=== PATIENT | male | born 1975 | race Caucasian/White ===

== ENCOUNTER 2017-07-05 19:58 | Emergency (ER) | payer BC ==
[2017-07-05 20:02] VITALS: BP 117/64; PULSE 83; TEMP 98.3; BMI 32.5
--- NOTE | 2017-07-05 20:04 | PDOC ---
History of Present Illness - General History Source: Patient Exam Limitations: No Limitations - History of Present Illness Initial Comments: 07/05/17 20:20 The patient is a 42 year old male with past medical history of depression, lap band surgery, and left TKR who presents to the ED with complaints of chest pain that began today. The patient describes his pain as a chest tightness that radiates toward his back. It is not associated with any shortness of breath, palpitations, or lightheadedness. He states that he did not eat anything all day until he went out to dinner and ate pasta with beans. The patient states his concern for his symptoms is due to his father having a heart attack at age 46. The patient denies any fevers, chills, nausea, vomiting, diarrhea, cough, or urinary symptoms. <Terra Lynch - Last Filed: 07/05/17 20:20> <Roz Olguin - Last Filed: 07/06/17 02:43> - General Chief Complaint: Chest Pain Stated Complaint: CHEST PAIN Time Seen by Provider: 07/05/17 20:03 Past History <Terra Lynch - Last Filed: 07/05/17 20:20> - Past Medical History Anemia: No Asthma: No Cancer: No Cardiac Disorders: No CVA: No COPD: No CHF: No Dementia: No Diabetes: No GI Disorders: Yes (GERD, Hiatal Hernia) Disorders: No HTN: Yes (no meds) Hypercholesterolemia: No Liver Disease: No Psychiatric Problems: Yes (DEPRESSION) Suicide Attempt (Hx): No Seizures: No Thyroid Disease: No - Surgical History Abdominal Surgery: Yes (lap band 2013) Appendectomy: No Cardiac Surgery: No Cholecystectomy: Yes Lung Surgery: No Neurologic Surgery: No Orthopedic Surgery: Yes (Left Knee Arthroscopy x6) - Immunization History Td Vaccination: Yes Immunization Up to Date: Yes - Psycho/Social/Smoking Cessation Hx Anxiety: No Suicidal Ideation: No Smoking Status: Yes Smoking History: Former smoker Years of Tobacco Use: 20 Have you smoked in the past 12 months: No Number of Cigarettes Smoked Daily: 0 If you are a former smoker, when did you quit?: FEBRUARY 2014 Information on smoking cessation initiated: No 'Breaking Loose' booklet given: 03/13/14 Hx Alcohol Use: No Drug/Substance Use Hx: No Substance Use Type: None Hx Substance Use Treatment: No <Roz Olguin - Last Filed: 07/06/17 02:43> - Past Medical History Allergies/Adverse Reactions: Allergies Allergy/AdvReac Type Severity Reaction Status Date / Time bupropion HCl Allergy Verified 09/03/15 15:33 [From Wellbutrin] Cat/Feline Product Allergy Verified 09/03/15 15:33 Derivatives seasonal Allergy Uncoded 09/03/15 15:33 Home Medications: Ambulatory Orders Lamotrigine [Lamictal] 200 mg PO DAILY 09/03/15 Escitalopram Oxalate [Lexapro -] 20 mg PO DAILY 07/05/17 Trazodone HCl [Desyrel -] 50 mg PO HS 07/05/17 Review of Systems - Review of Systems Able to Perform ROS?: Yes Comments:: 07/05/17 20:20 CONSTITUTIONAL: Absent: fever, chills, diaphoresis, generalized weakness, malaise, loss of appetite HEENT: Absent: rhinorrhea, nasal congestion, throat pain, throat swelling, difficulty swallowing, mouth swelling, ear pain, eye pain, visual Changes CARDIOVASCULAR: Present: chest pain Absent: syncope, palpitations, irregular heart rate, lightheadedness, peripheral edema RESPIRATORY: Absent: cough, shortness of breath, dyspnea with exertion, orthopnea, wheezing, stridor, hemoptysis GASTROINTESTINAL: Absent: abdominal pain, abdominal distension, nausea, vomiting, diarrhea, constipation, melena, hematochezia GENITOURINARY: Absent: dysuria, frequency, urgency, hesitancy, hematuria, flank pain, genital pain MUSCULOSKELETAL: Present: back pain Absent: joint swelling SKIN: Absent: rash, itching, pallor HEMATOLOGIC/IMMUNOLOGIC: Absent: easy bleeding, easy bruising, lymphadenopathy, frequent infections ENDOCRINE: Absent: unexplained weight gain, unexplained weight loss, heat intolerance, cold intolerance NEUROLOGIC: Absent: headache, focal weakness or paresthesias, dizziness, unsteady gait, seizure, mental status changes, bladder or bowel incontinence PSYCHIATRIC: Absent: anxiety, depression, suicidal or homicidal ideation, hallucinations. All Other Systems: Reviewed and Negative <Terra Lynch - Last Filed: 07/05/17 20:20> *Physical Exam - Vital Signs Last Vital Signs Temp Pulse Resp BP Pulse Ox 98.3 F 83 16 117/64 98 07/05/17 20:00 07/05/17 20:00 07/05/17 20:00 07/05/17 20:00 07/05/17 20:00 - Physical Exam Comments: 07/05/17 20:21 GENERAL: Well developed, well nourished. Awake and alert. No acute distress. HEENT: Normocephalic, atraumatic. PERRLA, EOMI. No conjunctival pallor. Sclera are non- icteric. Moist mucous membranes. Oropharynx is clear. NECK: Supple. Full ROM. No JVD. Carotid pulses 2+ and symmetric, without bruits. No thyromegaly. No lymphadenopathy. CARDIOVASCULAR: Regular rate and rhythm. No murmurs, rubs, or gallops. Distal pulses are 2+ and symmetric. PULMONARY: No evidence of respiratory distress. Lungs clear to auscultation bilaterally. No wheezing, rales or rhonchi. ABDOMINAL: Soft. Non-tender. Non-distended. No rebound or guarding. No organomegaly. Normoactive bowel sounds. MUSCULOSKELETAL Normal range of motion at all joints. No bony deformities or tenderness. No CVA tenderness. EXTREMITIES: Left knee scar. No cyanosis. No clubbing. No edema. No calf tenderness. SKIN: Warm and dry. Normal capillary refill. No rashes. No jaundice. NEUROLOGICAL: Alert, awake, appropriate. Cranial nerves 2-12 intact. No deficits to light touch and temperature in face, upper extremities and lower extremities. No motor deficits in the in face, upper extremities and lower extremities. Normoreflexic in the upper and lower extremities. Normal speech. Toes are down-going bilaterally. Gait is normal without ataxia. PSYCHIATRIC: Cooperative. Good eye contact. Appropriate mood and affect. <Terra Lynch - Last Filed: 07/05/17 20:20> - Vital Signs Last Vital Signs Temp Pulse Resp BP Pulse Ox 98.3 F 83 16 117/64 98 07/05/17 20:00 07/05/17 20:00 07/05/17 20:00 07/05/17 20:00 07/05/17 20:00 <Roz Olguin - Last Filed: 07/06/17 02:43> ED Treatment Course - Medications Given in the ED: ED Medications Discontinued Medications Generic Name Dose Route Start Last Admin Trade Name Freq PRN Reason Stop Dose Admin Al Hydroxide/Mg Hydroxide 30 ml 07/05/17 20:15 07/05/17 20:18 Mylanta Oral Suspension - PO 07/05/17 20:16 30 ml ONCE ONE Administration <Terra Lynch - Last Filed: 07/05/17 20:20> Medical Decision Making - Medical Decision Making 07/06/17 02:41 Pt comes with chest pain; states that his dad had an UT in his 40s. Pt states he ate nothing today and went out to eat pasta and beans and felt tightness in chest. Pt has a hx of lap band procedure and likely has GERD symptoms after not eating all day and finally eating ne big meal. Pt has a normal EKG and normal CXR and normal vitals and normal exam. He was reassurred and asked to follow with PMD and with a radiation protection engineer. <Roz Olguin - Last Filed: 07/06/17 02:43> *DC/Admit/Observation/Transfer - Attestations Scribe Attestion: 07/05/17 20:22 Documentation prepared by Terra Lynch, acting as medical anthropologist for Roz Olguin MD. <Terra Lynch - Last Filed: 07/05/17 20:20> - Discharge Dispostion Admit: No <Roz Olguin - Last Filed: 07/06/17 02:43> Diagnosis at time of Disposition: GERD (gastroesophageal reflux disease) - Discharge Dispostion Disposition: HOME Condition at time of disposition: Stable - Referrals Referrals: Ben Antonio MD [Primary Care Provider] - - Patient Instructions Printed Discharge Instructions: DI for Atypical Chest Pain, Gastroesophageal Reflux Disease (Alternative Therapy), DI for Gastroesophageal Reflux Disease ( GERD)
[2017-07-05] MEDS ORDERED: MAG HYDROX/AL HYDROX/SIMETH 30 ML UNIT-DOSE CUP PO ONE (20:15)
[2017-07-05] MEDS ORDERED: MAG HYDROX/AL HYDROX/SIMETH 30 ML UNIT-DOSE CUP ONE (20:16)
--- NOTE | 2017-07-08 10:30 | EKG ---
Test Reason : Blood Pressure : / mmHG Vent. Rate : 071 BPM Atrial Rate : 071 BPM P-R Int : 154 ms QRS Dur : 088 ms QT Int : 382 ms P-R-T Axes : 055 017 041 degrees QTc Int : 415 ms NORMAL SINUS RHYTHM WHEN COMPARED WITH ECG OF 26-FEB-2015 20:49, NO SIGNIFICANT CHANGE WAS FOUND Confirmed by MD PIPER MARJORY ([id number]) on 07/08/2017 10:29:59 AM Referred By: AYLIN Confirmed By:VALERIA PIPER MD
== END 2017-07-05 20:50 | disposition home or self-care (01) ==
LOC: FER 19:58
DX: K21.9 Gastro-esophageal reflux disease without esophagitis (principal); F32.9 Major depressive disorder, single episode, unspecified; J30.2 Other seasonal allergic rhinitis; Z98.84 Bariatric surgery status; Z96.652 Presence of left artificial knee joint; Z87.891 Personal history of nicotine dependence; Z88.6 Allergy status to analgesic agent
CPT/HCPCS: 71020-TC; 93005; 99281-25

== ENCOUNTER 2018-02-25 12:47 | Observation (INO) | payer BC ==
--- NOTE | 2018-02-25 13:42 | PDOC ---
Attending Attestation - Resident Resident Name: IkeCecilia - ED Attending Attestation I have performed the following: I have examined & evaluated the patient, The case was reviewed & discussed with the resident, I agree w/resident's findings & plan, Exceptions are as noted - HPI HPI: 02/25/18 17:39 Mr Griffith is a 42 yo M h/o MDD who presents with a 10 day h/o vertigo. Sx begin in the morning, sometimes, vertigo is worse with going from reclined to standing position. Sx last for 1 hour. (+) nausea No chest pain, no dyspnea, lightheadedness, palpitations. Sx worsen when looking to the left 02/25/18 17:42 - Physicial Exam PE: 02/25/18 17:41 GENERAL: The patient is in no acute distress. HEAD: Normal EYES: PERRLA, EOMI, sclera anicteric, conjunctiva clear. ENT: Ears normal, nares patent, oropharynx clear without exudates. Moist mucous membranes. NECK: Normal range of motion, supple without lymphadenopathy, JVD, or masses. LUNGS: Breath sounds equal, clear to auscultation bilaterally. No wheezes, and no crackles. HEART:Regular rate and rhythm, normal S1 and S2 without murmur, rub or gallop. ABDOMEN: Soft, nontender, normoactive bowel sounds. No guarding, no rebound. No masses palpable. EXTREMITIES: Normal range of motion, no edema. No clubbing or cyanosis. No erythema, or tenderness. NEUROLOGICAL: Cranial nerves II through XII grossly intact. Normal speech. No focal neurological deficits. MUSCULOSKELETAL: Back non-tender to palpation, no CVA tenderness SKIN: Warm, Dry, normal turgor, no rashes or lesions noted. - Medical Decision Making 02/25/18 17:42 42 yo M presenting to the ER with vertigo intermittently for the past 10 days DD: likely BPPV, possibly labrynthitis, less likely posterior mass, less likely vertebral artery dissection Will do labs, CT Given meclizine with no improvement Will re assess
--- NOTE | 2018-02-25 13:59 | PDOC ---
History of Present Illness - General Chief Complaint: Lightheaded Stated Complaint: FALL, DIZZINESS (PCP SENT) Time Seen by Provider: 02/25/18 13:31 - History of Present Illness Initial Comments: 02/25/18 13:55 42 year old male with a PMH of BPD, MDD who presents with a 10 day h/o vertigo. Patient states the vertigo starts in the morning when he wakes up often immediately when he awakes, sometimes positional moving from supine to seated. States sensation is that of his head spinning. Episodes usually resolved within an hour, however today the symptoms persisted prompting his visit to the ED. Endorses associated nausea, denies chest pain, dyspnea, lightheadedness, palpitations. AllergY: Buproprion Surgical: Lap Band, Cholecystectomy Social: denies cigarettes, denies alcohol, denies recreational drugs PMD: Dr. Antonio Past History - Past Medical History Allergies/Adverse Reactions: Allergies Allergy/AdvReac Type Severity Reaction Status Date / Time bupropion HCl Allergy Verified 02/25/18 12:49 [From Wellbutrin] Cat/Feline Product Allergy Verified 02/25/18 12:49 Derivatives seasonal Allergy Uncoded 02/25/18 12:49 Home Medications: Ambulatory Orders Lamotrigine [Lamictal] 200 mg PO DAILY 09/03/15 Escitalopram Oxalate [Lexapro -] 20 mg PO DAILY 07/05/17 traZODone HCL [Desyrel -] 50 mg PO HS 07/05/17 Meclizine HCl [Antivert -] 25 mg PO Q6H PRN #40 tablet 02/26/18 Anemia: No Asthma: No Cancer: No Cardiac Disorders: No CVA: No COPD: No CHF: No Dementia: No Diabetes: No GI Disorders: Yes (GERD, Hiatal Hernia) Disorders: No HTN: Yes (no meds) Hypercholesterolemia: No Liver Disease: No Psychiatric Problems: Yes (DEPRESSION) Seizures: No Thyroid Disease: No - Surgical History Abdominal Surgery: Yes (lap band 2012) Appendectomy: No Cardiac Surgery: No Cholecystectomy: Yes Lung Surgery: No Neurologic Surgery: No Orthopedic Surgery: Yes (Left Knee Arthroscopy x6) - Immunization History Td Vaccination: Yes Immunization Up to Date: Yes - Suicide/Smoking/Psychosocial Hx Smoking Status: Yes Smoking History: Former smoker Years of Tobacco Use: 20 Have you smoked in the past 12 months: No Number of Cigarettes Smoked Daily: 0 If you are a former smoker, when did you quit?: 5yrs ago Information on smoking cessation initiated: No 'Breaking Loose' booklet given: 03/13/14 Hx Alcohol Use: No Drug/Substance Use Hx: No Substance Use Type: None Hx Substance Use Treatment: No Review of Systems - Review of Systems Constitutional: No: Chills, Fever HEENTM: No: Recent change in vision Respiratory: No: Cough, Shortness of Breath Cardiac (ROS): No: Chest Pain, Lightheadedness, Palpitations, Syncope ABD/GI: No: Constipated, Diarrhea, Nausea, Vomiting : No: Burning, Dysuria *Physical Exam - Vital Signs Last Vital Signs Temp Pulse Resp BP Pulse Ox 97.7 F 74 18 124/79 100 02/25/18 12:50 02/25/18 12:50 02/25/18 12:50 02/25/18 12:50 02/25/18 12:50 - Physical Exam General Appearance: Yes: Nourished, Appropriately Dressed HEENT: positive: EOMI, MICHELLE. negative: Scleral Icterus (R), Scleral Icterus (L) Neck: positive: Trachea midline, Supple Respiratory/Chest: positive: Lungs Clear, Normal Breath Sounds. negative: Crackles, Rales, Rhonchi, Stridor, Wheezing Cardiovascular: positive: S1, S2. negative: Edema, JVD Gastrointestinal/Abdominal: positive: Normal Bowel Sounds, Soft Musculoskeletal: negative: CVA Tenderness (R), CVA Tenderness (L) Extremity: positive: Normal Capillary Refill, Normal Inspection Integumentary: positive: Normal Color, Dry Neurologic: positive: waredresser II-XII NML intact, Fully Oriented, Alert, Motor Strength 5/5, Finger to Nose. negative: Facial Droop, Numbness, Sensory Deficit ED Treatment Course - LABORATORY CBC & Chemistry Diagram: 02/26/18 06:20 02/26/18 06:20 Medical Decision Making - Medical Decision Making 02/25/18 13:59 42 year old male presents with worsening vertigo + associated nausea and headaches @ awakening. VS unremarkable. No focal neurologic deficits on PE. Frontal diagnosis: r/o CVA, malignancy, ACS, electrolyte derangement, vasculopathy -- Will obtain CT Head, ECG, Troponin. Reasess. 02/25/18 14:30 ECG shows NSR HR 68, no deviations, normal intervals, no BERENICE/STD, TWI. Orthostatic VS negative. Patient @ CT 02/25/18 15:[address] negative for acute bleed/ischemia. Will give Meclizine for vertigo. Head CTA to r/o carotid occlusion. Troponin (-) x1. Pat 02/25/18 16:39 Patient continues to c/o vertigo s/p Meclizine. Will trial Valium + IV NS. Vertigo worse when headed turned L > R 02/25/18 17:05 Case d/w Dr. Antonio agrees w/OBS admission with neurology consult. Will page Dr. Duque. 02/25/18 18:[address] Russell - OBS admission; neurology to evaluate tomorrow. Patient to be signed out to Dr. Jacome (Resident) and Dr. Irwin (Attending). Will continue to monitor while in ED. *DC/Admit/Observation/Transfer Diagnosis at time of Disposition: Lightheadedness - Discharge Dispostion Disposition: HOME Condition at time of disposition: Stable - Prescriptions - Referrals - Patient Instructions - Post Discharge Activity
[2018-02-25 14:58] LABS: N-TERMINAL BNP 59.63 pg/ml (5-125)
[2018-02-25] MEDS ORDERED: MECLIZINE HCL 25 MG TABLET (FP) PO ONE (15:28)
[2018-02-25] MEDS ORDERED: MECLIZINE HCL 25 MG TABLET (FP) ONE (15:30)
[2018-02-25] MEDS ORDERED: diazePAM CARPU-JECT 10 MG/2 ML DISP.SYRIN IVPUSH ONE (16:39)
[2018-02-25] MEDS ORDERED: diazePAM 5 MG TABLET ONE (17:00)
[2018-02-25] MEDS ORDERED: diazePAM 5 MG TABLET PO ONE (17:01)
[2018-02-25 17:12] LABS: ALBUMIN 4.3 g/dl (3.4-5.0); ALK PHOS 53 U/L (45-117); ANION GAP 7 (8-16); BILIRUBIN,TOTAL 0.6 mg/dL (0.2-1.0); BLOOD UREA NITROGEN 16 mg/dL (7-18); CHLORIDE 107 mmol/L (98-107); CO2 27 mmol/L (21-32); CREATININE 0.9 mg/dL (0.7-1.3); GLUCOSE,RANDOM 91 mg/dL (74-106); SGOT/AST 30 U/L (15-37); SGPT/ALT 26 U/L (12-78); SODIUM 141 mmol/L (136-145); TOT PROT 7.7 g/dl (6.4-8.2)
[2018-02-25] MEDS: SODIUM CHLORIDE 0.9% 500 ML INFUS.BAG IV ONE ×2 (17:51→18:00)
--- NOTE | 2018-02-25 19:50 | EKG ---
Test Reason : Blood Pressure : / mmHG Vent. Rate : 068 BPM Atrial Rate : 068 BPM P-R Int : 170 ms QRS Dur : 088 ms QT Int : 414 ms P-R-T Axes : 034 002 020 degrees QTc Int : 440 ms NORMAL SINUS RHYTHM NORMAL ECG WHEN COMPARED WITH ECG OF 05-JUL-2017 20:16, NO SIGNIFICANT CHANGE WAS FOUND Confirmed by GENEVA DIAZ MD ([id number]) on 02/25/2018 7:50:26 PM Referred By: Confirmed By:GENEVA DIAZ MD
--- NOTE | 2018-02-25 19:51 | HP ---
CHIEF COMPLAINT: Dizziness, Nausea PCP: Dr. Antonio HISTORY OF PRESENT ILLNESS: 42 y/o man PMH: Vasovagal, MDD, BPD, HTN (no meds since Lap band sx), GERD, Hiatal Hernia. Who presents to the ED with vertigo symptoms x 10 days. Patient reports the symptoms worsened this am- nausea, blurred vision, unsteady gait. His reports that he became diaphoretic and pale. Patient reports that the dizziness is worse with turning his head. Patient denies tinnitus, numbness, slurred speech. Patient denies fever, cough, SOB, CP, palpitations, AP, V/D, constipation, dysuria. Patient denies recent fall or trauma. ER course was notable for: (1) CT- no evidence of focal intracranial lesion, hemorrhage. 2.3cm cyst vs polyp right and left maxillary (2) EKG- NSR no ST or TWI (3) Chest Xray- no acute pathology Recent Travel: None PAST MEDICAL HISTORY: See HPI PAST SURGICAL HISTORY: Lap Band Cholecystectomy Left Knee Arthroscopy x6 Social History: Smoking: Former 1PPD, quit 5 yrs ago Alcohol: Occasional Drugs: None Lives with spouse and child- employed Family History: Father: Leukemia, Vascular, COPD, Emphysema Mother: Migraines, Non-Alcoholic Fatty Liver Allergies bupropion HCl [From Wellbutrin] Allergy (Verified 02/25/18 12:49) Cat/Feline Product Derivatives Allergy (Verified 02/25/18 12:49) seasonal Allergy (Uncoded 02/25/18 12:49) HOME MEDICATIONS: Home Medications Medication Instructions Recorded Lamotrigine [Lamictal] 200 mg PO DAILY 09/03/15 Escitalopram Oxalate [Lexapro -] 20 mg PO DAILY 07/05/17 traZODone HCL [Desyrel -] 50 mg PO HS 07/05/17 REVIEW OF SYSTEMS CONSTITUTIONAL: Absent: fever, chills, diaphoresis, generalized weakness, malaise, loss of appetite, weight change HEENT: Absent: rhinorrhea, nasal congestion, throat pain, throat swelling, difficulty swallowing, mouth swelling, ear pain, eye pain, visual changes CARDIOVASCULAR: Absent: chest pain, syncope, palpitations, irregular heart rate, lightheadedness , peripheral edema RESPIRATORY: Absent: cough, shortness of breath, dyspnea with exertion, orthopnea, wheezing, stridor, hemoptysis GASTROINTESTINAL: nausea Absent: abdominal pain, abdominal distension, vomiting, diarrhea, constipation, melena, hematochezia GENITOURINARY: Absent: dysuria, frequency, urgency, hesitancy, hematuria, flank pain, genital pain MUSCULOSKELETAL: Absent: myalgia, arthralgia, joint swelling, back pain, neck pain SKIN: Absent: rash, itching, pallor HEMATOLOGIC/IMMUNOLOGIC: Absent: easy bleeding, easy bruising, lymphadenopathy, frequent infections ENDOCRINE: Absent: unexplained weight gain, unexplained weight loss, heat intolerance, cold intolerance NEUROLOGIC: dizziness Absent: headache, focal weakness or paresthesias, unsteady gait, seizure, mental status changes, bladder or bowel incontinence PSYCHIATRIC: Absent: anxiety, depression, suicidal or homicidal ideation, hallucinations. PHYSICAL EXAMINATION Vital Signs - 24 hr 02/25/18 02/25/18 02/25/18 12:50 14:00 16:57 Temperature 97.7 F Pulse Rate 74 Pulse Rate [ 65 Radial] Pulse Rate [ 68 Right side Sitting] Pulse Rate [ 76 Right side Standing] Pulse Rate [ 70 Right side Supine] Respiratory 18 18 Rate Blood Pressure 124/79 Blood Pressure 123/66 [Right Arm] Blood Pressure 122/80 [Right side Sitting] Blood Pressure 124/83 [Right side Standing] Blood Pressure 117/76 [Right side Supine] O2 Sat by Pulse 100 97 Oximetry (%) GENERAL: Awake, alert, and fully oriented, in no acute distress. HEAD: Normal with no signs of trauma. EYES: Pupils equal, round and reactive to light, extraocular movements intact, sclera anicteric, conjunctiva clear. No lid lag. EARS, NOSE, THROAT: Ears normal, nares patent, oropharynx clear without exudates. Moist mucous membranes. NECK: Normal range of motion, supple without lymphadenopathy, JVD, or masses. LUNGS: Breath sounds equal, clear to auscultation bilaterally. No wheezes, and no crackles. No accessory muscle use. HEART: Regular rate and rhythm, normal S1 and S2 without murmur, rub or gallop. ABDOMEN: Soft, nontender, not distended, normoactive bowel sounds, no guarding, no rebound, no masses. No hepatomegaly or splenomegaly. MUSCULOSKELETAL: Normal range of motion at all joints. No bony deformities or tenderness. No CVA tenderness. UPPER EXTREMITIES: 2+ pulses, warm, well-perfused. No cyanosis. No clubbing. No peripheral edema. LOWER EXTREMITIES: 2+ pulses, warm, well-perfused. No calf tenderness. No peripheral edema. NEUROLOGICAL: Cranial nerves II-XII intact. Normal speech. Gait not observed. PSYCHIATRIC: Cooperative. Good eye contact. Appropriate mood and affect. SKIN: Warm, dry, normal turgor, no rashes or lesions noted, normal capillary refill. Laboratory Results - last 24 hr 02/25/18 14:25 Sodium 141 Potassium 4.0 Chloride 107 Carbon Dioxide 27 Anion Gap 7 L BUN 16 D Creatinine 0.9 Creat Clearance w eGFR > 60 Random Glucose 91 Calcium 9.0 Total Bilirubin 0.6 D AST 30 ALT 26 Alkaline Phosphatase 53 Troponin I < 0.02 B-Natriuretic Peptide 59.63 Total Protein 7.7 Albumin 4.3 ASSESSMENT/PLAN: This is a 42 y/o man with PMH: Vasovagal, MDD, BPD, HTN, GERD, Hiatal Hernia. Placed on Observation for Vertigo. Problem List - Problem (1) Vertigo Assessment/Plan: - Likely BPPV vs Labyrinthitis - CTAP- no focal intracranial lesion, hemorrhage, 2.3cm cyst vs polyp R and L maxillary - NS bolus, meclizine, valium given in ED - Appreciate Neurology consult - IVF - Meclizine prn - Fall Precautions - CBC, BMP, Mg, Phos in am - Monitor vitals - Orthostatics Code(s): R42 - DIZZINESS AND GIDDINESS (2) MDD (major depressive disorder) Assessment/Plan: - stable - Continue Lexapro, Lamictal, Trazadone Code(s): F32.9 - MAJOR DEPRESSIVE DISORDER, SINGLE EPISODE, UNSPECIFIED (3) HTN (hypertension) Assessment/Plan: - Monitor BP - no current meds (diet controlled) Code(s): I10 - ESSENTIAL (PRIMARY) HYPERTENSION (4) GERD (gastroesophageal reflux disease) Assessment/Plan: - stable - Omeprazole NF will change to Protonix Code(s): K21.9 - GASTRO-ESOPHAGEAL REFLUX DISEASE WITHOUT ESOPHAGITIS (5) DVT prophylaxis Assessment/Plan: - OOB - SCDs - Consider AC if LOS > 48 hrs Code(s): OCM0639 - Visit type - Emergency Visit Emergency Visit: Yes ED Registration Date: 02/25/18 Care time: The patient presented to the Emergency Department on the above date and was hospitalized for further evaluation of their emergent condition. - New Patient This patient is new to me today: Yes Date on this admission: 02/25/18 - Critical Care Critical Care patient: No Hospitalist Screening - Colonoscopy Questionnaire Colonoscopy Questionnaire: Colonoscopy Questionnaire - Patient: 50 - 75 years old and never had a screening colonoscopy: No History of colon or rectal polyps, or CA: No History of IBD, Crohn's disease or UC: No History of abdominal radiation therapy as a child: No - Relative: 1 with colon or rectal CA, or polyps at age 60 or younger: Unknown Colon or rectal CA diagnosed at age 45 or younger: Unknown Multiple relatives with colon or rectal CA: Unknown - Outcome: Screening Result: Negative Screen
[2018-02-25 21:02] VITALS: BMI 34.4
[2018-02-25] MEDS: SODIUM CHLORIDE 1,000 ML IV SCH (21:17)
[2018-02-25] MEDS ORDERED: traZODone HCL 50 MG TABLET (FP) PO SCH (22:00)
[2018-02-25] MEDS ORDERED: lamoTRIgine 100 MG TABLET (FP) PO SCH (22:00)
[2018-02-26] MEDS ORDERED: ESCITALOPRAM OXALATE 10 MG TABLET (FP) ONE (05:53)
[2018-02-26] MEDS ORDERED: PANTOPRAZOLE 20 MG TABLET (FP) PO SCH (07:00)
[2018-02-26] MEDS ORDERED: ESCITALOPRAM OXALATE 20 MG TABLET (FP) PO SCH (07:00)
[2018-02-26] MEDS ORDERED: MECLIZINE HCL 25 MG TABLET (FP) PO PRN (07:10)
[2018-02-26 07:23] LABS: BASO % 0.3 % (0-2.0); EOS % 3.4 % (0-4.5); HEMATOCRIT 41.1 % (35.4-49); HEMOGLOBIN 14.3 GM/dL (11.7-16.9); LYMPH % 28.2 % (8-40); MCH 30.6 pg (25.7-33.7); MCHC 34.7 g/dl (32.0-35.9); MEAN CELL VOLUME 88.3 fl (80-96); MEAN PLT VOLUME 7.9 fl (7.5-11.1); MONO % 8.7 % (3.8-10.2); NEUT % 59.4 % (42.8-82.8); PLATELET COUNT 228 K/MM3 (134-434); RBC 4.66 M/mm3 (4.00-5.60); RDW 13.2 % (11.9-15.9); WHITE BLOOD COUNT 6.4 K/mm3 (4.0-10.0)
[2018-02-26 07:38] LABS: INR 1.08 (0.82-1.09); PROTHROMBIN TIME (PATIENT) 12.2 SEC (9.7-13.0)
[2018-02-26 07:53] LABS: ANION GAP 4 (8-16); BLOOD UREA NITROGEN 12 mg/dL (7-18); CALCIUM 8.4 mg/dL (8.5-10.1); CHLORIDE 109 mmol/L (98-107); CO2 29 mmol/L (21-32); GLUCOSE,RANDOM 81 mg/dL (74-106); POTASSIUM 4.2 mmol/L (3.5-5.1); SODIUM 142 mmol/L (136-145)
--- NOTE | 2018-02-26 09:54 | CONSULT ---
Consult - text type - Consultation Consultation Note: Neurology CHIEF COMPLAINT: Dizziness, Nausea PCP: Dr. Antonio HISTORY OF PRESENT ILLNESS: 42 y/o with vasovagal, MDD, BPD, HTN (no meds since Lap band sx), GERD, Hiatal Hernia. Who presents to the ED with vertigo symptoms x 10 days. Patient reported the symptoms worsened morning of admission with nausea, blurred vision , unsteady gait. His who was at bedside reported that he became diaphoretic and pale. Patient reports that the dizziness is worse with turning his head. Patient denies tinnitus, numbness, slurred speech. Patient denies fever, cough, SOB, CP, palpitations, AP, V/D, constipation, dysuria. Patient denies recent fall or trauma. In ER CT head completed and no evidence of focal intracranial lesion, hemorrhage. Was admitted and receiving IV fluids as well as Meclezine PRN. Feels better this AM. Informed him that prn meclezine would require him to ask for the medicaiton. asking about MRI and informed her that after 10 days would expect lesion to be visible on CT scan. Additionally, his symptoms had improved during the week then recurred. In the case of a CVA, would not follow this course typically. Would have expected symptoms to persistent. Patient also claustrophobic and not able to tolerate MRI here, per patient. He was ambulting without dizzyness during my visit and well appearing. Recent Travel: None PAST MEDICAL HISTORY: See HPI PAST SURGICAL HISTORY: Lap Band Cholecystectomy Left Knee Arthroscopy x6 Social History: Smoking: Former 1PPD, quit 5 yrs ago Alcohol: Occasional Drugs: None Lives with spouse and child- employed Family History: Father: Leukemia, Vascular, COPD, Emphysema Mother: Migraines, Non-Alcoholic Fatty Liver Allergies bupropion HCl [From Wellbutrin] Allergy (Verified 02/25/18 12:49) Cat/Feline Product Derivatives Allergy (Verified 02/25/18 12:49) seasonal Allergy (Uncoded 02/25/18 12:49) HOME MEDICATIONS: Home Medications Medication Instructions Recorded Lamotrigine [Lamictal] 200 mg PO DAILY 09/03/15 Escitalopram Oxalate [Lexapro -] 20 mg PO DAILY 07/05/17 traZODone HCL [Desyrel -] 50 mg PO HS 07/05/17 REVIEW OF SYSTEMS CONSTITUTIONAL: Absent: fever, chills, diaphoresis, generalized weakness, malaise, loss of appetite, weight change HEENT: Absent: rhinorrhea, nasal congestion, throat pain, throat swelling, difficulty swallowing, mouth swelling, ear pain, eye pain, visual changes CARDIOVASCULAR: Absent: chest pain, syncope, palpitations, irregular heart rate, lightheadedness , peripheral edema RESPIRATORY: Absent: cough, shortness of breath, dyspnea with exertion, orthopnea, wheezing, stridor, hemoptysis GASTROINTESTINAL: nausea Absent: abdominal pain, abdominal distension, vomiting, diarrhea, constipation, melena, hematochezia GENITOURINARY: Absent: dysuria, frequency, urgency, hesitancy, hematuria, flank pain, genital pain MUSCULOSKELETAL: Absent: myalgia, arthralgia, joint swelling, back pain, neck pain SKIN: Absent: rash, itching, pallor HEMATOLOGIC/IMMUNOLOGIC: Absent: easy bleeding, easy bruising, lymphadenopathy, frequent infections ENDOCRINE: Absent: unexplained weight gain, unexplained weight loss, heat intolerance, cold intolerance NEUROLOGIC: dizziness Absent: headache, focal weakness or paresthesias, unsteady gait, seizure, mental status changes, bladder or bowel incontinence PSYCHIATRIC: Absent: anxiety, depression, suicidal or homicidal ideation, hallucinations. PHYSICAL EXAMINATION Vital Signs Period Temp Pulse Resp BP Sys/Izaguirre Pulse Ox Last 24 Hr 97.7 F-98.5 F 60-78 18-20 103-124/66-83 97-100 GENERAL: Awake, alert, and fully oriented, in no acute distress. HEAD: Normal with no signs of trauma. EYES: Pupils equal, round and reactive to light, extraocular movements intact, sclera anicteric, conjunctiva clear. No lid lag. EARS, NOSE, THROAT: Ears normal, nares patent, oropharynx clear without exudates. Moist mucous membranes. NECK: Normal range of motion, supple without lymphadenopathy, JVD, or masses. LUNGS: Breath sounds equal, clear to auscultation bilaterally. No wheezes, and no crackles. No accessory muscle use. HEART: Regular rate and rhythm, normal S1 and S2 without murmur, rub or gallop. ABDOMEN: Soft, nontender, not distended, normoactive bowel sounds, no guarding, no rebound, no masses. No hepatomegaly or splenomegaly. MUSCULOSKELETAL: Normal range of motion at all joints. No bony deformities or tenderness. No CVA tenderness. UPPER EXTREMITIES: 2+ pulses, warm, well-perfused. No cyanosis. No clubbing. No peripheral edema. LOWER EXTREMITIES: 2+ pulses, warm, well-perfused. No calf tenderness. No peripheral edema. NEUROLOGICAL: Cranial nerves II-XII intact. Normal speech. No ataxia on ambulation, gait without significant dysfunction PSYCHIATRIC: Cooperative. Good eye contact. Appropriate mood and affect. SKIN: Warm, dry, normal turgor, no rashes or lesions noted, normal capillary refill. CBCD WBC 6.4 K/mm3 (4.0-10.0) 02/26/18 06:20 RBC 4.66 M/mm3 (4.00-5.60) 02/26/18 06:20 Hgb 14.3 GM/dL (11.7-16.9) 02/26/18 06:20 Hct 41.1 % (35.4-49) 02/26/18 06:20 MCV 88.3 fl (80-96) 02/26/18 06:20 MCHC 34.7 g/dl (32.0-35.9) 02/26/18 06:20 RDW 13.2 % (11.9-15.9) 02/26/18 06:20 Plt Count 228 K/MM3 (134-434) 02/26/18 06:20 MPV 7.9 fl (7.5-11.1) 02/26/18 06:20 CMP Sodium 142 mmol/L (136-145) 02/26/18 06:20 Potassium 4.2 mmol/L (3.5-5.1) 02/26/18 06:20 Chloride 109 mmol/L (98-107) H 02/26/18 06:20 Carbon Dioxide 29 mmol/L (21-32) 02/26/18 06:20 Anion Gap 4 (8-16) L 02/26/18 06:20 BUN 12 mg/dL (7-18) D 02/26/18 06:20 Creatinine 1.0 mg/dL (0.7-1.3) 02/26/18 06:20 Creat Clearance w eGFR > 60 (>60) 02/25/18 14:25 Calcium 8.4 mg/dL (8.5-10.1) L 02/26/18 06:20 Total Bilirubin 0.6 mg/dL (0.2-1.0) D 02/25/18 14:25 AST 30 U/L (15-37) 02/25/18 14:25 ALT 26 U/L (12-78) 02/25/18 14:25 Alkaline Phosphatase 53 U/L (45-117) 02/25/18 14:25 Total Protein 7.7 g/dl (6.4-8.2) 02/25/18 14:25 Albumin 4.3 g/dl (3.4-5.0) 02/25/18 14:25 CT head: No acute changes ASSESSMENT/PLAN: This is a 42 y/o man with PMH: Vasovagal, MDD, BPD, HTN, GERD, Hiatal Hernia. Placed on Observation for Vertigo. Plan: 42 y/o man PMH: Vasovagal, MDD, BPD, HTN (no meds since Lap band sx), GERD, Hiatal Hernia. Who presents to the ED with vertigo symptoms x 10 days. Patient reported the symptoms worsened morning of admission with nausea, blurred vision , unsteady gait. His who was at bedside reported that he became diaphoretic and pale. Patient reports that the dizziness is worse with turning his head. Patient denies tinnitus, numbness, slurred speech. Patient denies fever, cough, SOB, CP, palpitations, AP, V/D, constipation, dysuria. Patient denies recent fall or trauma. In ER CT head completed and no evidence of focal intracranial lesion, hemorrhage. Was admitted and receiving IV fluids as well as Meclezine PRN. Feels better this AM. Informed him that prn meclezine would require him to ask for the medicaiton. asking about MRI and informed her that after 10 days would expect lesion to be visible on CT scan. Additionally, his symptoms had improved during the week then recurred. In the case of a CVA, would not follow this course typically. Would have expected symptoms to persistent. Patient also claustrophobic and not able to tolerate MRI here, per patient. He was ambulating without dizzyness during my visit and well appearing. Possibly for discharge today if continues to improve and ambulatory. Discussed with patient and and all in agreement.
[2018-02-26] MEDS: SODIUM CHLORIDE 1,000 ML IV SCH (10:12)
--- NOTE | 2018-02-26 11:58 | PN ---
Progress Note, Physician - Current Medication List Current Medications: Active Medications Escitalopram Oxalate (Lexapro -) 20 mg PO AM [facility] Last Admin: 02/26/18 06:08 Dose: 20 mg Lamotrigine (Lamictal -) 200 mg PO [facility] Last Admin: 02/25/18 21:20 Dose: 200 mg Meclizine HCl (Antivert -) 25 mg PO Q6H PRN PRN Reason: VERTIGO Last Admin: 02/26/18 09:46 Dose: 25 mg Pantoprazole Sodium (Protonix -) 20 mg PO AM [facility] Last Admin: 02/26/18 06:07 Dose: 20 mg Trazodone HCl (Desyrel -) 50 mg PO [facility] Last Admin: 02/25/18 21:20 Dose: 50 mg - Objective Vital Signs: Vital Signs Temperature 98.5 F 02/26/18 05:59 Pulse Rate 70 02/26/18 05:59 Respiratory Rate 20 02/26/18 05:59 Blood Pressure 103/70 02/26/18 05:59 O2 Sat by Pulse Oximetry (%) 100 02/25/18 19:45 Labs: CBC, BMP 02/26/18 06:20 02/26/18 06:20 INR, PTT INR 1.08 (0.82-1.09) 02/26/18 06:20
--- NOTE | 2018-02-26 12:00 | DS ---
Physical Examination Vital Signs: Vital Signs Temperature 98.5 F 02/26/18 05:59 Pulse Rate 70 02/26/18 05:59 Respiratory Rate 20 02/26/18 05:59 Blood Pressure 103/70 02/26/18 05:59 O2 Sat by Pulse Oximetry (%) 100 02/25/18 19:45 Constitutional: Yes: Well Nourished, No Distress Eyes: Yes: WNL HENT: Yes: WNL Cardiovascular: Yes: WNL, Regular Rate and Rhythm. No: Murmur Respiratory: Yes: WNL, Regular, CTA Bilaterally. No: SOB, Tachypnea Gastrointestinal: Yes: WNL, Normal Bowel Sounds, Soft, Abdomen, Obese. No: Distention, Tenderness Renal/: Yes: WNL Extremities: Yes: WNL Edema: No Neurological: Yes: WNL, Alert, Oriented Psychiatric: Yes: WNL, Alert, Oriented Labs: CBC, BMP 02/26/18 06:20 02/26/18 06:20 Discharge Summary Reason For Visit: VERTIGO Current Active Problems DVT prophylaxis (Acute) HTN (hypertension) (Acute) Lightheadedness (Acute) MDD (major depressive disorder) (Acute) Vertigo (Acute) Hospital Course: is a pleasant 42 year old male who came in for evaluation of [id number] days. Neuro work up negative for any acute findings. Neurology has evaluated pt and has cleared pt for discharge. Pt doing well today, denies any further symptoms of dizziness. Pt advised to f/u with PCP outpt. Can take Meclizine prn for vertigo. Otherwise, pt is medically cleared for discharge Condition: Stable - Instructions Diet, Activity, Other Instructions: resume prev diet , ambulate as tolerated adequate hydration at least 2l/day meclizine prn for vertigo can f/u w/ for migraines f/u w/ PCP in 1 week Referrals: Sanjeev Duque MD [Staff Physician] - 2 Weeks Ben Antonio MD [Primary Care Provider] - 1 Week Disposition: HOME - Home Medications Comprehensive Discharge Medication List: Ambulatory Orders Lamotrigine [Lamictal] 200 mg PO DAILY 09/03/15 Escitalopram Oxalate [Lexapro -] 20 mg PO DAILY 07/05/17 traZODone HCL [Desyrel -] 50 mg PO HS 07/05/17 Meclizine HCl [Antivert -] 25 mg PO Q6H PRN #40 tablet 02/26/18
[2018-02-26 14:02] VITALS: PULSE 81
[2018-02-26 14:58] VITALS: BP 140/85; TEMP 98.5
[2018-02-26] MEDS ORDERED: MECLIZINE HCL 25 MG TABLET (FP) PO ONE (15:15)
== END 2018-02-26 18:49 | disposition home or self-care (01) ==
LOC: JER 12:47 → JERBED 18:55 → J6S 20:44
PROVIDERS: ADMIT Internal Medicine; ATTEND Internal Medicine
PROC: 3E0337Z Introduction of Electrolytic and Water Balance Substance into Peripheral Vein, Percutaneous Approach (ICD-10-PCS; principal; 2018-02-25)
DX: R42 Dizziness and giddiness (principal); F32.9 Major depressive disorder, single episode, unspecified; I10 Essential (primary) hypertension; K21.9 Gastro-esophageal reflux disease without esophagitis; J30.2 Other seasonal allergic rhinitis; K44.9 Diaphragmatic hernia without obstruction or gangrene; Z88.8 Allergy status to other drugs, medicaments and biological substances; Z98.84 Bariatric surgery status; Z87.891 Personal history of nicotine dependence
CPT/HCPCS: 36415; 70450-TC; 71045-TC-FY; 80048; 80053; 83880; 84484; 85025; 85610; 93005; 93010; 97116-GP; 97161-GP; 99285-25; G0378; J7030

== ENCOUNTER 2018-08-11 11:09 | Emergency (ER) | payer BC ==
[2018-08-11 11:16] VITALS: BP 145/84; PULSE 78; TEMP 99.1; BMI 35.2
--- NOTE | 2018-08-11 11:50 | PDOC ---
History of Present Illness - General Chief Complaint: Pain, Acute Stated Complaint: right flank pain Time Seen by Provider: 08/11/18 11:17 - History of Present Illness Initial Comments: 08/11/18 13:29 43 years old past medical history significant for left hand surgery presents to the ED with 3 week history of right-sided mid axillary rib pain Patient fell approximately 2 weeks ago onto his left side since then he has had gradual intermittent positional pain to his right ribs especially when lifting his right arm overhead the symptoms have progressively worsened over the last few weeks they are still intermittent but they're associated with movement moderate to severe in severity alleviated by rest No fever no chest pain or shortness of breath no nausea no vomiting or diarrhea no abdominal pain. Past History - Past Medical History Allergies/Adverse Reactions: Allergies Allergy/AdvReac Type Severity Reaction Status Date / Time bupropion HCl Allergy Verified 08/11/18 11:10 [From Wellbutrin] Cat/Feline Product Allergy Verified 08/11/18 11:10 Derivatives seasonal Allergy Uncoded 02/25/18 12:49 Home Medications: Ambulatory Orders Lamotrigine [Lamictal] 100 mg PO HS 09/03/15 Escitalopram Oxalate [Lexapro -] 30 mg PO DAILY 07/05/17 traZODone HCL [Desyrel -] 50 mg PO HS 07/05/17 Meclizine HCl [Antivert -] 25 mg PO Q6H PRN #40 tablet 02/26/18 Anemia: No Asthma: No Cancer: No Cardiac Disorders: No CVA: No COPD: No CHF: No Dementia: No Diabetes: No GI Disorders: Yes (GERD, Hiatal Hernia) Disorders: No HTN: Yes (no meds) Hypercholesterolemia: No Liver Disease: No Psychiatric Problems: Yes (DEPRESSION) Seizures: No Thyroid Disease: No - Surgical History Abdominal Surgery: Yes (lap band 2013) Appendectomy: No Cardiac Surgery: No Cholecystectomy: Yes Lung Surgery: No Neurologic Surgery: No Orthopedic Surgery: Yes (Left Knee Arthroscopy x6) - Immunization History Td Vaccination: Yes Immunization Up to Date: Yes - Suicide/Smoking/Psychosocial Hx Smoking Status: Yes Smoking History: Former smoker Years of Tobacco Use: 20 Have you smoked in the past 12 months: No Number of Cigarettes Smoked Daily: 0 If you are a former smoker, when did you quit?: 5yrs ago Information on smoking cessation initiated: No 'Breaking Loose' booklet given: 03/13/14 Hx Alcohol Use: No Drug/Substance Use Hx: No Substance Use Type: None Hx Substance Use Treatment: No Review of Systems - Review of Systems Comments:: 08/11/18 13:29 ROS: A complete review of 10 out of 10 review of systems is taken and is negative apart from what is previously mentioned below and in the HPI. *Physical Exam - Vital Signs Last Vital Signs Temp Pulse Resp BP Pulse Ox 99.1 F 78 18 145/84 100 08/11/18 11:10 08/11/18 11:10 08/11/18 11:10 08/11/18 11:10 08/11/18 11:10 - Physical Exam Comments: 08/11/18 13:30 Vitals: Triage Vital signs reviewed General Appearance: no acute distress, well nourished well developed, Head: Atraumatic, Neck: Supple;No Nucal rigidity Chest Wall: reproducible right rib/muscle discomfort with extension overhead of right arm Cardiac: Regular rate and rhythym, no murmurs, no rubs, no gallops, Lungs: Clear to auscultation bilateral, good air movement bilaterally, Abdomen: Soft, non distended, normal bowel sounds, non tender to palpation, no CVA tenderness to palpation Extremities: Full range of motion to all extremities, no cyanosis, clubbing, or edema Skin: Warm and dry, no rashes or lesions, no rash, no petechiae Neuro: Strength intact to all extremities, Sensation intact to all extremities, gait normal Psych: normal mood, normal affect Medical Decision Making - Medical Decision Making 08/11/18 13:26 History examination consistent with musculoskeletal injury to the right side likely Serraturs muscle. Case also discussed with patient's bariatric surgeon Dr. Joy will loosens his LAP-BAND No acute findings on patient's x-ray. Final reads are pending. Status post Toradol and LAP-BAND loosening patient feels better recommend short course of NSAIDs and orthopedic follow-up if no improvement Findings, the need for follow-up and strict return instructions discussed with patient. *DC/Admit/Observation/Transfer Diagnosis at time of Disposition: Musculoskeletal pain - Discharge Dispostion Disposition: HOME Condition at time of disposition: Stable Decision to Admit order: No - Referrals Referrals: Bob Gates MD [Staff Physician] - - Patient Instructions Printed Discharge Instructions: DI for Musculoskeletal Pain Additional Instructions: Take 2 tabs Aleve twice a day for the next 2 days. Rest affected side. No heavy lifting this week. Return to ED for any severe worsening symptoms or for any concerns otherwise follow-up with orthopedics if no improvement in symptoms. - Post Discharge Activity Forms/Work/School Notes: Back to Work
[2018-08-11] MEDS ORDERED: KETOROLAC TROMETHAMINE 30 MG/1 ML VIAL IM ONE (11:52)
[2018-08-11] MEDS ORDERED: KETOROLAC TROMETHAMINE 30 MG/1 ML VIAL ONE (11:59)
--- NOTE | 2018-08-11 14:14 | CONSULT ---
Consult - text type - Consultation Consultation Note: Asked to see this 43 yo male with right flank pain. Pt with Lap-Band and has experienced increased vomiting. Pt taken to X-RAY. Barium swallow shows band in good position but tight. Under sterile conditions, in x-ray, 2.2 cc of fluid removed. Barium flows thru band well P-Return to ER F/U with Bariatric Office in 9 days
== END 2018-08-11 13:40 | disposition home or self-care (01) ==
LOC: FER 11:09
PROC: 3E0233Z Introduction of Anti-inflammatory into Muscle, Percutaneous Approach (ICD-10-PCS; principal; 2018-08-11)
DX: Z98.84 Bariatric surgery status (principal); K21.9 Gastro-esophageal reflux disease without esophagitis; F32.9 Major depressive disorder, single episode, unspecified; I10 Essential (primary) hypertension
CPT/HCPCS: 71045-TC-FY; 71101-TC-RT-FY; 72070-TC-FY; 74247-TC-FY; 99281-25

== ENCOUNTER 2021-03-01 07:43 | Day surgery (SDC) | payer BC ==
[2021-02-28 15:57] VITALS: BMI 40.6
[2021-03-01] MEDS ORDERED: PROPOFOL 20 ML ONE ×2 (09:20)
[2021-03-01 10:48] VITALS: PULSE 80; TEMP 98.2
[2021-03-01 10:51] VITALS: BP 124/75
== END 2021-03-01 10:30 | disposition home or self-care (01) ==
LOC: FASU-ENDO 07:43
PROVIDERS: ATTEND Internal Medicine Gastroenterology
PROC: 0DB78ZX Excision of Stomach, Pylorus, Via Natural or Artificial Opening Endoscopic, Diagnostic (ICD-10-PCS; 2021-03-01)
PROC: 0DB98ZX Excision of Duodenum, Via Natural or Artificial Opening Endoscopic, Diagnostic (ICD-10-PCS; principal; 2021-03-01 09:48)
DX: K31.7 Polyp of stomach and duodenum (principal); K20.90 Esophagitis, unspecified without bleeding; K29.70 Gastritis, unspecified, without bleeding; Z98.84 Bariatric surgery status; R12 Heartburn
CPT/HCPCS: 88305-TC; 88342-TC

== ENCOUNTER 2021-03-06 07:16 | Inpatient (IN) | payer BC ==
[2021-03-01 11:11] VITALS: BMI 40.6
[2021-03-06] MEDS ORDERED: BUPIVACAINE LIPOSOME/PF (EXPAREL) 266 MG/20 ML VIAL ONE (09:49)
[2021-03-06] MEDS ORDERED: MIDAZOLAM HCL 2 MG/2 ML SINGLE DOSE VIAL ONE ×2 (09:49→10:45)
[2021-03-06] MEDS ORDERED: BUPIVACAINE HCL/PF 0.25% (2.5MG/ML) 10 ML VIAL ONE (10:30)
[2021-03-06] MEDS ORDERED: fentaNYL CITRATE 250 MCG/5 ML VIAL ONE (10:45)
[2021-03-06] MEDS ORDERED: PROPOFOL 20 ML ONE ×3 (10:45)
[2021-03-06] MEDS ORDERED: ROCURONIUM BROMIDE 50 MG/5 ML SYRINGE ONE ×2 (10:46→11:34)
[2021-03-06] MEDS ORDERED: ONDANSETRON 4 MG/2 ML VIAL IVPUSH PRN ×2 (11:30→13:33)
[2021-03-06] MEDS ORDERED: LACTATED RINGERS SOLUTION 1,000 ML IV SCH (11:30)
[2021-03-06] MEDS ORDERED: BUPIVACAINE HCL/PF 0.25% (2.5MG/ML) 10 ML VIAL IJ ONE ×2 (12:45→12:55)
[2021-03-06] MEDS ORDERED: GLYCOPYRROLATE 0.2 MG/1 ML VIAL ONE ×2 (12:49)
[2021-03-06] MEDS ORDERED: NEOSTIGMINE METHYLSULFATE 0.5 MG/1 ML - 10 ML MDV ONE (12:49)
[2021-03-06] MEDS ORDERED: FAMOTIDINE 20 MG/50 ML IVPB 20 MG/50 ML MG IVPB ONE (13:38)
[2021-03-06] MEDS ORDERED: HYDROmorphone HCL CARPU-JECT 1 MG/1 ML DISP.SYRIN IVPB PRN ×2 (13:39)
[2021-03-06] MEDS ORDERED: SODIUM CHLORIDE 1,000 ML IV SCH (13:45)
[2021-03-06] MEDS ORDERED: FAMOTIDINE 20 MG PREMIXED IVPB IVPB ONE (14:00)
[2021-03-06] MEDS: METOCLOPRAMIDE HCL INJECTION 10 MG/2 ML VIAL IVPUSH SCH ×2 (14:05→19:31)
[2021-03-06 14:06] LABS: HEMATOCRIT 44.7 % (35.4-49); HEMOGLOBIN 15.4 GM/dl (11.7-16.9); MCH 30.6 pg (25.7-33.7); MCHC 34.5 g/dl (32.0-35.9); MEAN CELL VOLUME 88.7 fl (80-96); MEAN PLT VOLUME 8.4 fl (7.5-11.1); PLATELET COUNT 239 K/MM3 (134-434); RBC 5.03 M/mm3 (4.00-5.60); RDW 12.8 % (11.9-15.9); WHITE BLOOD COUNT 8.9 K/mm3 (4.0-10.8)
[2021-03-06 14:24] LABS: ALBUMIN 4.2 g/dl (3.4-5.0); BILIRUBIN,TOTAL 0.6 mg/dl (0.2-1); CALCIUM 8.6 mg/dl (8.5-10); CREATININE 1.2 mg/dl (0.55-1.3); TOT PROT 7.2 g/dl (6.4-8.2)
[2021-03-06] MEDS ORDERED: HYDROmorphone HCL/PF 1 MG/ML VIAL IVPB PRN (16:36)
[2021-03-06] MEDS: HYDROmorphone HCL/PF 1 MG/ML VIAL IVPB PRN (16:44)
[2021-03-06 20:10] LABS: HEMATOCRIT 43.7 % (35.4-49); HEMOGLOBIN 15.3 GM/dl (11.7-16.9); MCH 30.8 pg (25.7-33.7); MEAN CELL VOLUME 88.2 fl (80-96); MEAN PLT VOLUME 8.6 fl (7.5-11.1); PLATELET COUNT 268 K/MM3 (134-434); RBC 4.96 M/mm3 (4.00-5.60); RDW 12.7 % (11.9-15.9); WHITE BLOOD COUNT 13.3 K/mm3 (4.0-10.8)
[2021-03-06 20:22] LABS: ALBUMIN 4.1 g/dl (3.4-5.0); BILIRUBIN,TOTAL 0.9 mg/dl (0.2-1); CALCIUM 8.4 mg/dl (8.5-10); CREATININE 1.1 mg/dl (0.55-1.3); TOT PROT 7.2 g/dl (6.4-8.2)
[2021-03-06] MEDS: FAMOTIDINE 20 MG/50 ML IVPB 20 MG/50 ML MG IVPB SCH (21:07)
[2021-03-06] MEDS: lamoTRIgine 100 MG TABLET PO SCH (21:55)
[2021-03-07] MEDS: METOCLOPRAMIDE HCL INJECTION 10 MG/2 ML VIAL IVPUSH SCH ×4 (01:21→19:45)
[2021-03-07] MEDS: HYDROmorphone HCL/PF 1 MG/ML VIAL IVPB PRN ×2 (03:41→08:03)
[2021-03-07] MEDS ORDERED: ACETAMINOPHEN 325 MG TABLET (FP) PO PRN (09:37)
[2021-03-07] MEDS ORDERED: SODIUM CHLORIDE 1,000 ML IV SCH (09:45)
[2021-03-07] MEDS ORDERED: ESCITALOPRAM OXALATE 20 MG TABLET PO SCH (10:00)
[2021-03-07] MEDS: lamoTRIgine 100 MG TABLET PO SCH (10:00)
[2021-03-07] MEDS: ENOXAPARIN NA (PORCINE) 30 MG/0.3 ML DISP.SYRIN SQ SCH ×2 (10:00→21:19)
[2021-03-07] MEDS: FAMOTIDINE 20 MG/50 ML IVPB 20 MG/50 ML MG IVPB SCH ×2 (10:00→21:20)
[2021-03-07] MEDS: ESCITALOPRAM OXALATE 20 MG TABLET PO SCH (10:01)
[2021-03-07 11:29] LABS: HEMATOCRIT 41.3 % (35.4-49); HEMOGLOBIN 14.2 GM/dl (11.7-16.9); MCH 30.3 pg (25.7-33.7); MCHC 34.5 g/dl (32.0-35.9); MEAN CELL VOLUME 87.7 fl (80-96); MEAN PLT VOLUME 8.1 fl (7.5-11.1); PLATELET COUNT 246 K/MM3 (134-434); RDW 12.5 % (11.9-15.9); WHITE BLOOD COUNT 12.2 K/mm3 (4.0-10.8)
[2021-03-07 11:36] LABS: ALBUMIN 3.9 g/dl (3.4-5.0); BILIRUBIN,TOTAL 0.9 mg/dl (0.2-1); CALCIUM 8.3 mg/dl (8.5-10); CREATININE 0.9 mg/dl (0.55-1.3); TOT PROT 6.6 g/dl (6.4-8.2)
[2021-03-07] MEDS: oxyCODONE HCL 5 MG TABLET PO PRN ×2 (13:19→18:35)
[2021-03-07] MEDS ORDERED: traZODone HCL 100 MG TABLET (FP) PO SCH (22:00)
[2021-03-08] MEDS: METOCLOPRAMIDE HCL INJECTION 10 MG/2 ML VIAL IVPUSH SCH ×3 (01:45→13:30)
[2021-03-08 08:10] VITALS: TEMP 98.6
[2021-03-08] MEDS: FAMOTIDINE 20 MG/50 ML IVPB 20 MG/50 ML MG IVPB SCH (09:21)
[2021-03-08] MEDS: lamoTRIgine 100 MG TABLET PO SCH ×2 (09:21→09:23)
[2021-03-08] MEDS: ESCITALOPRAM OXALATE 20 MG TABLET PO SCH (09:21)
[2021-03-08] MEDS: ENOXAPARIN NA (PORCINE) 30 MG/0.3 ML DISP.SYRIN SQ SCH (09:21)
[2021-03-08 14:21] VITALS: BP 134/78; PULSE 83
== END 2021-03-08 14:35 | disposition home or self-care (01) | DRG 621 ==
LOC: FM/S 07:16
PROVIDERS: ADMIT Surgery; ATTEND Surgery
PROC: 0DNW4ZZ Release Peritoneum, Percutaneous Endoscopic Approach (ICD-10-PCS; 2021-03-06)
PROC: 0DJ04ZZ Inspection of Upper Intestinal Tract, Percutaneous Endoscopic Approach (ICD-10-PCS; 2021-03-06)
PROC: 0DB64Z3 Excision of Stomach, Percutaneous Endoscopic Approach, Vertical (ICD-10-PCS; principal; 2021-03-06 11:23)
PROC: 0DP64CZ Removal of Extraluminal Device from Stomach, Percutaneous Endoscopic Approach (ICD-10-PCS; 2021-03-06 11:23)
PROC: 0FB24ZX Excision of Left Lobe Liver, Percutaneous Endoscopic Approach, Diagnostic (ICD-10-PCS; 2021-03-06 11:23)
DX: E66.01 Morbid (severe) obesity due to excess calories (principal); Z68.38 Body mass index [BMI] 38.0-38.9, adult; R10.13 Epigastric pain; R16.0 Hepatomegaly, not elsewhere classified; K21.9 Gastro-esophageal reflux disease without esophagitis; K66.0 Peritoneal adhesions (postprocedural) (postinfection); T85.898A Other specified complication of other internal prosthetic devices, implants and grafts, initial encounter; Y83.8 Other surgical procedures as the cause of abnormal reaction of the patient, or of later complication, without mention of misadventure at the time of the procedure
CPT/HCPCS: 36415; 74240-TC-FY; 80053; 85027; 86850; 86900; 86901; 94760

== ENCOUNTER 2021-06-12 17:40 | Emergency (ER) | payer BC ==
[2021-06-12 18:38] VITALS: BP 133/88; PULSE 72; TEMP 98; BMI 32.3
== END 2021-06-12 18:40 | disposition home or self-care (01) ==
LOC: FER 17:40
DX: M79.672 Pain in left foot (principal)
CPT/HCPCS: 73630-TC-LT; 99283-25

== ENCOUNTER 2022-04-02 06:04 | Day surgery (SDC) | payer BC ==
[2022-03-26 11:45] VITALS: BMI 32.9
[2022-04-02] MEDS ORDERED: fentaNYL CITRATE 250 MCG/5 ML VIAL ONE (07:27)
[2022-04-02] MEDS ORDERED: PROPOFOL 20 ML ONE ×3 (07:27→10:20)
[2022-04-02] MEDS ORDERED: LIDOCAINE HCL/PF 2% SDV 5ML VIAL ONE (07:27)
[2022-04-02] MEDS ORDERED: MIDAZOLAM HCL 2 MG/2 ML SINGLE DOSE VIAL ONE ×2 (07:28)
[2022-04-02] MEDS ORDERED: ROCURONIUM BROMIDE 50 MG/5 ML SYRINGE ONE (07:29)
[2022-04-02] MEDS ORDERED: SUCCINYLCHOLINE CHLORIDE 200 MG/10 ML SYRINGE ONE (07:29)
[2022-04-02] MEDS ORDERED: BUPIVACAINE HCL/PF 0.25% (2.5MG/ML) 10 ML VIAL ONE (07:52)
[2022-04-02] MEDS ORDERED: VANCOMYCIN 1,000 MG VIAL (RESTRICTED TO ID ONLY) ONE (09:23)
[2022-04-02] MEDS ORDERED: GLYCOPYRROLATE 0.2 MG/1 ML VIAL ONE (10:25)
[2022-04-02] MEDS ORDERED: NEOSTIGMINE METHYLSULFATE 0.5 MG/1 ML - 10 ML MDV ONE (10:25)
[2022-04-02] MEDS ORDERED: BUPIVACAINE HCL/PF 0.25% (2.5MG/ML) 10 ML VIAL IJ ONE (10:30)
[2022-04-02] MEDS ORDERED: oxyCODONE HCL 5 MG TABLET PO PRN ×3 (10:44→10:48)
[2022-04-02] MEDS ORDERED: FAMOTIDINE 20 MG TABLET PO PRN (10:47)
[2022-04-02] MEDS ORDERED: ACETAMINOPHEN 500 MG TABLET (FP) PO PRN (10:48)
[2022-04-02] MEDS ORDERED: ONDANSETRON 4 MG/2 ML VIAL IVPUSH PRN (10:48)
[2022-04-02] MEDS ORDERED: SIMETHICONE 80 MG TAB.CHEW (FP) PO PRN (10:49)
[2022-04-02] MEDS ORDERED: FENTANYL CITRATE/PF 50 MCG/ML VIAL ONE ×3 (10:56→11:24)
[2022-04-02] MEDS ORDERED: ACETAMINOPHEN INJECTION 100 ML IVPB ONE (10:56)
[2022-04-02] MEDS ORDERED: ACETAMINOPHEN 1000 MG/100 ML BAG IVPB ONE (10:59)
[2022-04-02] MEDS ORDERED: LACTATED RINGERS SOLUTION 1,000 ML IV SCH (11:00)
[2022-04-02] MEDS ORDERED: SODIUM CHLORIDE 1,000 ML IV SCH (11:00)
[2022-04-02] MEDS: KETOROLAC TROMETHAMINE 30 MG/1 ML VIAL IVPUSH SCH (16:54)
[2022-04-02] MEDS: ACETAMINOPHEN 500 MG TABLET (FP) PO SCH (21:44)
[2022-04-02] MEDS ORDERED: traZODone HCL 50 MG TABLET (FP) PO SCH ×2 (22:00)
[2022-04-02] MEDS ORDERED: LAMOTRIGINE 300 MG PO SCH (22:00)
[2022-04-03] MEDS: KETOROLAC TROMETHAMINE 30 MG/1 ML VIAL IVPUSH SCH ×2 (00:14→08:18)
[2022-04-03 06:19] VITALS: PULSE 85
[2022-04-03] MEDS: ACETAMINOPHEN 500 MG TABLET (FP) PO SCH ×2 (07:06→08:19)
[2022-04-03 08:27] LABS: HEMATOCRIT 37.5 % (35.4-49); HEMOGLOBIN 13.4 G/dL (11.7-16.9); MCH 32.6 pg (25.7-33.7); MCHC 35.6 g/dl (32.0-35.9); MEAN CELL VOLUME 91.5 fl (80-96); MEAN PLT VOLUME 8.4 fl (7.5-11.1); PLATELET COUNT 215.1 10^3/uL (134-434); RDW 14.1 % (11.9-15.9); WHITE BLOOD COUNT 12.8 10^3/uL (4.0-10.8)
[2022-04-03 08:28] LABS: ALBUMIN 3.5 g/dl (3.4-5.0); BILIRUBIN,TOTAL 0.7 mg/dl (0.2-1); CALCIUM 8.7 mg/dl (8.5-10); CREATININE 0.9 mg/dl (0.55-1.3); TOT PROT 5.7 g/dl (6.4-8.2)
[2022-04-03 09:38] VITALS: BP 134/59; TEMP 98.5
[2022-04-03] MEDS ORDERED: VENLAFAXINE HCL 50 MG PO SCH (10:00)
[2022-04-03] MEDS ORDERED: ESCITALOPRAM OXALATE 20 MG TABLET PO SCH (10:00)
== END 2022-04-03 09:42 | disposition home or self-care (01) ==
LOC: FASU 06:04 → FASUSAT 06:04 → FM/S 11:56 → FASUSAT 04-03 09:42
PROVIDERS: ATTEND Surgery
PROC: 0JC80ZZ Extirpation of Matter from Abdomen Subcutaneous Tissue and Fascia, Open Approach (ICD-10-PCS; 2022-04-02)
PROC: 0WUF4JZ Supplement Abdominal Wall with Synthetic Substitute, Percutaneous Endoscopic Approach (ICD-10-PCS; principal; 2022-04-02 08:45)
DX: K43.9 Ventral hernia without obstruction or gangrene (principal); M79.5 Residual foreign body in soft tissue
CPT/HCPCS: 36415; 80053; 85025; 88300-TC; 94760

== ENCOUNTER 2022-06-21 04:29 | Day surgery (SDC) | payer BC ==
[2022-06-19 11:29] VITALS: BMI 32.5
[2022-06-21 09:04] VITALS: BP 100/49; PULSE 73; RESP 13
[2022-06-21 09:15] VITALS: TEMP 100
== END 2022-06-21 09:01 | disposition home or self-care (01) ==
LOC: JASU-ENDO 04:29
PROVIDERS: ATTEND Internal Medicine Gastroenterology
PROC: 0DBP8ZX Excision of Rectum, Via Natural or Artificial Opening Endoscopic, Diagnostic (ICD-10-PCS; principal; 2022-06-21 08:00)
DX: Z12.11 Encounter for screening for malignant neoplasm of colon (principal); D12.8 Benign neoplasm of rectum; Z83.71 Family history of colonic polyps
CPT/HCPCS: 88305-TC

== ENCOUNTER 2024-01-27 19:20 | Emergency (ER) | payer BC ==
[2024-01-27 19:48] VITALS: BP 147/98; PULSE 110; RESP 18; TEMP 97.8; BMI 38.0
[2024-01-27 20:41] LABS: INR 0.99 (0.83-1.09); PROTHROMBIN TIME (PATIENT) 11.5 SEC (9.7-13.0)
[2024-01-27 20:42] LABS: HEMOGLOBIN 13.2 G/dL (11.7-16.9); MCH 26.3 pg (25.7-33.7); MCHC 33.9 g/dl (32.0-35.9); MEAN CELL VOLUME 77.6 fl (80-96); MEAN PLT VOLUME 8.4 fl (7.5-11.1); PLATELET COUNT 275.6 10^3/uL (134-434); RBC 5.03 10^6/uL (4.00-5.60); RDW 16.7 % (11.9-15.9); WHITE BLOOD COUNT 9.1 10^3/uL (4.0-10.8)
[2024-01-27 20:44] LABS: ACTIVATED PTT 32.8 SECONDS (25.2-36.5)
[2024-01-27 20:53] LABS: ALBUMIN 4.5 g/dl (3.4-5.0); BILIRUBIN,TOTAL 0.3 mg/dl (0.2-1); CALCIUM 9.6 mg/dl (8.5-10.1); POTASSIUM 3.9 mmol/L (3.5-5.1); TOT PROT 7.3 g/dl (6.4-8.2)
[2024-01-27 22:43] LABS: ANISOCYTOSIS 1+; PLATELET ESTIMATE ADEQUATE
== END 2024-01-27 23:20 | disposition home or self-care (01) ==
LOC: FER 19:20
DX: R10.9 Unspecified abdominal pain (principal); R07.9 Chest pain, unspecified; R06.02 Shortness of breath; R11.0 Nausea; R00.0 Tachycardia, unspecified
CPT/HCPCS: 36415; 71046-TC-FY; 71275-TC; 74177-TC; 80053; 81003; 84484; 85027; 85379; 85610; 85730; 87086; 93005; 99285-25; Q9967